=== PATIENT | female | born 1995 | race Caucasian/White ===

== ENCOUNTER 2021-06-16 03:19 | Emergency (ER) | payer MEDICAID ==
[2021-06-16] MEDS ORDERED: AMOXICILLIN 250 MG CAPSULE ONE (04:16)
== END 2021-06-16 04:22 | disposition home or self-care (01) ==
LOC: ER 03:19
DX: H66.91 Otitis media, unspecified, right ear (principal)
CPT/HCPCS: 99281; 99283